=== PATIENT | female | born 1980 | race Caucasian/White ===

== ENCOUNTER → 2020-07-05 | Outpatient (CLI) | payer OTHER ==
[~2020-07-05] MED LIST: ADDERALL XR 2020 MG PO; DITROPAN XL5 MG PO; EFFEXOR XR150 MG PO; ESTRACE2 MG PO; FLAGYL500 MG PO; LEVAQUIN500 MG PO; NORVASC 5 MG TAB5 MG PO; ROBAXIN500 MG PO; SINGULAIR10 MG PO; TOPAMAX100 MG PO; TOPROL XL50 MG PO; ZYRTEC10 M3 PO
== END ==
LOC: SLEEP 13:49
DX: G47.33 Obstructive sleep apnea (adult) (pediatric) (principal); G47.11 Idiopathic hypersomnia with long sleep time
CPT/HCPCS: 95810